=== PATIENT | male | born 1995 | race Caucasian/White ===

== ENCOUNTER 2019-07-31 22:56 | Emergency (ER) | payer OTHER ==
[~2019-07-31] VITALS: Ht 172.7 cm; Wt 88.1 kg
[2019-07-31 23:02] VITALS: BP 136/95
[2019-07-31] MEDS ORDERED: IBUPROFEN 600 MG TABLET. PO ONE (23:30)
--- NOTE | 2019-07-31 23:31 | PHYS DOC ---
Past History Additional Past Medical Histor: right labral tear Smoking: Cigarettes Adult General Chief Complaint Chief Complaint: SHOULDER INJURY HPI HPI patient is a 23-year-old male who presents to the emergency department for evaluation. He has a cough productive of whitish sputum for the past 2 days, and today developed some left-sided posterior scapular area pain, radiating up towards his left shoulder. The pain is worsened with deep breathing, and coughing, as well as movements of his upper back. He denies any significant shortness of breath, dizziness or lightheadedness, numbness, or weakness. He has had some mild nasal congestion as well. He has not had any fevers or chills. There are no alleviating or exacerbating factors to the patient's symptoms. Review of Systems Review of Systems Constitutional: Denies fever or chills [] Eyes: Denies change in visual acuity, redness, or eye pain [] HENT: Denies otalgia or sore throat. Reports nasal congestion. [] Respiratory: Denies shortness of breath [] Cardiovascular: No additional information not addressed in HPI [] GI: Denies abdominal pain, nausea, vomiting, bloody stools or diarrhea [] : Denies dysuria or hematuria [] Musculoskeletal: Denies back pain or joint pain [] Integument: Denies rash or skin lesions [] Neurologic: Denies headache, focal weakness or sensory changes [] Endocrine: Denies polyuria or polydipsia [] All other systems were reviewed and found to be within normal limits, except as documented in this note. Current Medications Current Medications Current Medications Medications (Trade) Dose Ordered Sig/[facility] Start Time Stop Time Status Last Admin Dose Admin Ibuprofen (Motrin) 600 mg 1X ONCE 07/31/19 23:30 07/31/19 23:31 UNV Allergies Allergies Allergies Coded Allergies Type Severity Reaction Last Updated Verified No Known Drug Allergies 07/31/19 No Physical Exam Physical Exam PHYSICAL EXAM: CONSTITUTIONAL: Well developed, well nourished HEAD: normocephalic, atraumatic EENT: PERRL, EOMI. Conjunctivae normal color, sclerae non-icteric; moist mucous membranes. NECK: Supple, non-tender; no meningismus. LUNGS: Lungs CTA, breathing even and unlabored. Normal air movement. HEART: Regular rate and rhythm, no murmur CHEST: No deformity; non-tender ABDOMEN: The abdomen is soft, and non-tender, no masses or bruits. EXTREM: Normal ROM; no deformity, no calf tenderness. Normal pulses palpable in all extremities. There is no pedal edema. SKIN: No rash; no diaphoresis NEURO: Alert; normal speech and cognition; CN's grossly intact; strength grossly intact without focal deficit. BACK: No CVA TTP. There is mild tenderness to palpation to the musculature of the left thoracic area. EKG EKG [] Radiology/Procedures Radiology/Procedures ER physician preliminary chest x-ray interpretation: Questionable retrocardiac i nfiltrate without other acute process.[] Course & Med Decision Making Course & Med Decision Making Pertinent Imaging studies reviewed. (See chart for details) []Patient remains stable. I discussed test results, the need for close follow- up, and return precautions. Dragon Disclaimer Dragon Disclaimer This electronic medical record was generated, in whole or in part, using a voice recognition dictation system. Departure Departure: Impression: Primary Impression: Pleurisy Additional Impression: Pneumonitis Disposition: 01 HOME, SELF-CARE Condition: STABLE Referrals: LEAH KHAN MD (PCP) Patient Instructions: Cough, Adult, Musculoskeletal Pain, Pleurisy Additional Instructions: Ibuprofen 400-600 mg every 6 hours may help improve your symptoms. Applying a heating pad to the affected area may help improve your symptoms. Scripts Azithromycin (AZITHROMYCIN TABLET) 250 Mg Tablet 250 MG PO DAILY for ANTI-BIOTIC for 4 Days, #4 TAB 0 Refills Prov: LINDY EAST MD 08/01/19 Problem Qualifiers LINDY EAST MD Jul 31, 2019 23:31
[2019-08-01] MEDS ORDERED: AZIT250T6 PO (00:33)
[2019-08-01] MEDS ORDERED: AZITHROMYCIN 250 MG TABLET. PO ONE (01:00)
--- NOTE | 2019-08-01 01:31 | RAD ---
CHEST PA LATERAL INDICATION: Cough. COMPARISON STUDY: None. FINDINGS: Lungs: Normal lung volume. No pulmonary mass or consolidation. The tracheobronchial tree and hilar structures are normal. Pleura: No pleural effusion or pneumothorax. Heart and Mediastinum: The cardiomediastinal silhouette is normal. The great vessels of the thorax are normal. Bones and Soft Tissues: The bones and soft tissues are within normal limits. IMPRESSION: No acute cardiopulmonary process. Electronically signed by: Trae Rush MD (08/01/2019 1:28 AM) [id number]
== END 2019-08-01 00:54 | disposition home or self-care (01) ==
LOC: ER 22:56
DX: J18.9 Pneumonia, unspecified organism (principal); R09.1 Pleurisy; F17.210 Nicotine dependence, cigarettes, uncomplicated
CPT/HCPCS: 71046; 99284; J0456